=== PATIENT | female | born 1970 ===

== ENCOUNTER → 2025-06-24 07:41 | Outpatient (REF) | payer OTHER, SELFPAY | LOC: RCS 07:41 | PROVIDERS: ATTENDING PHYSICIAN Internal Medicine; FAMILY PHYSICIAN Family Medicine Adult Medicine | DX: R06.09 Other forms of dyspnea (principal); R07.9 Chest pain, unspecified; R00.2 Palpitations | CPT/HCPCS: 93017 ==

== ENCOUNTER → 2025-06-25 09:27 | Outpatient (REF) | payer OTHER, SELFPAY | LOC: HWRCS 09:27 | PROVIDERS: ATTENDING PHYSICIAN Internal Medicine; FAMILY PHYSICIAN Family Medicine Adult Medicine | DX: E78.00 Pure hypercholesterolemia, unspecified (principal); Z71.89 Other specified counseling; R06.09 Other forms of dyspnea; R07.9 Chest pain, unspecified; R00.2 Palpitations; Z82.49 Family history of ischemic heart disease and other diseases of the circulatory system | CPT/HCPCS: 93306 ==